=== PATIENT | female | born 1965 | race Caucasian/White ===

== ENCOUNTER 2021-04-04 05:58 | Day surgery (SDC) | payer BC, SELFPAY ==
[2021-04-01 11:23] VITALS: BMI 21.2
--- NOTE | 2021-04-02 10:07 | HO.ANESPROP2 ---
Documented by User: Priya Bañuelos 04/02/21 10:07 HPI - Anesthesia Eval Consult details Narrative: 55yo F for Hammertoe Repair PCP cleared Insulin pump in situ PMFSH Past Medical History Medical History Anemia COVID-19 vaccine administered Elevated cholesterol HTN (hypertension) Hx of diabetic neuropathy Thyroid disease Type 1 diabetes mellitus Surgical History Surgical History H/O colonoscopy History of carpal tunnel release History of incision and drainage Hx of wisdom tooth extraction Social History Social History Do you presently have visiting nurse or other home services: No Smoking Status: Never smoker Use of substances other than those prescribed or required for medical reasons: No Have you been hit, kicked, punched, or otherwise hurt by someone within the past year? If so, by whom?: No Are you DNR?: No Advance Directives Information Provided: No Recently lost weight without trying: No Eating poorly because of decreased appetite: No Nutrition Risks: No Nutritional Risk Patient : No Poor oral hygiene: No Meds Allergies Allergy/AdvReac Type Severity Reaction Status Date / Time lidocaine Allergy Intermediate tachycardia Verified 04/01/21 11:23 X1 w/dental / facial swelling X1 w/sutures Home Medications Medication Instructions Recorded Confirmed Last Taken Type aspirin [Aspirin Low Dose] 81 mg PO DAILY 04/01/21 04/01/21 Unknown History atorvastatin 1 tab PO DAILY 04/01/21 04/01/21 Unknown History cholecalciferol (vitamin D3) 25 mcg PO DAILY 04/01/21 04/01/21 Unknown History [Vitamin D3] gabapentin 1 cap PO DAILY 04/01/21 04/01/21 Unknown History insulin lispro [Humalog U-100 SUBCUT 04/01/21 04/01/21 Unknown History Insulin] levothyroxine 1 tab PO DAILY 04/01/21 04/01/21 Unknown History losartan 1 tab PO DAILY 04/01/21 04/01/21 Unknown History Exam Exam Date and Time: April 02, 2021 1007 Height,Weight and Vital Signs: Height 5 ft 8 in Weight 63.503 kg Assessment and Plan Assessment Anesthesia Assessment: Chart Reviewed Documented by User: Uma Womack 04/04/21 07:28 [facility] Past Medical History Medical History Anemia COVID-19 vaccine administered Elevated cholesterol HTN (hypertension) Hx of diabetic neuropathy Thyroid disease Type 1 diabetes mellitus Surgical History Surgical History H/O colonoscopy History of carpal tunnel release History of incision and drainage Hx of wisdom tooth extraction Social History Social History Do you presently have visiting nurse or other home services: No Smoking Status: Never smoker Use of substances other than those prescribed or required for medical reasons: No Have you been hit, kicked, punched, or otherwise hurt by someone within the past year? If so, by whom?: No Are you DNR?: No Advance Directives Information Provided: No Recently lost weight without trying: No Eating poorly because of decreased appetite: No Nutrition Risks: No Nutritional Risk Patient : No Poor oral hygiene: No Meds Allergies Allergy/AdvReac Type Severity Reaction Status Date / Time lidocaine Allergy Intermediate tachycardia Verified 04/01/21 11:23 X1 w/dental / facial swelling X1 w/sutures Home Medications Medication Instructions Recorded Confirmed Last Taken Type aspirin [Aspirin Low Dose] 81 mg PO DAILY 04/01/21 04/01/21 Unknown History atorvastatin 1 tab PO DAILY 04/01/21 04/01/21 Unknown History cholecalciferol (vitamin D3) 25 mcg PO DAILY 04/01/21 04/01/21 Unknown History [Vitamin D3] gabapentin 1 cap PO DAILY 04/01/21 04/01/21 Unknown History insulin lispro [Humalog U-100 SUBCUT 04/01/21 04/01/21 Unknown History Insulin] levothyroxine 1 tab PO DAILY 04/01/21 04/01/21 Unknown History losartan 1 tab PO DAILY 04/01/21 04/01/21 Unknown History Exam Airway Mallampati Class: II TM Dist: >3cm Neck ROM: Full Heart: RRR Lungs: CTA Assessment and Plan Assessment Anesthesia Assessment: Anesthesia Plan Discussed and Chart Reviewed Final Anesthetic Review NPO: Yes ASA Class: III Final Preanesthetic Review: Meds/Allgs Chart Reviewed, Consent Obtained/Reviewed and Anes Risks/Benef Reviewed Patient Risk: Intermediate Procedure Risk: Low Anesthetic Plan Anesthetic Plan: MAC: Disposition: Standard PACU
--- NOTE | 2021-04-03 15:22 | HP_ITS ---
DATE OF SERVICE: 04/04/2021 DATE OF PROPOSED SURGERY: April 04, 2021. PREOPERATIVE DIAGNOSIS: 1. Tailor bunion of the right 5th metatarsal. 2. Hammertoe, right 2nd. 3. Hammertoe, right 3rd. 4. Hammertoe, right 4th. 5. Hammertoe, right 5th. 6. 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 PLANNED PROCEDURES: 1. Partial metatarsal head resection, right 5th metatarsal. 2. Hammertoe repair, right 2nd. 3. Hammertoe repair, right 3rd. 4. Hammertoe repair, right 4th. 5. Hammertoe repair, right 5th. 6. Extensor tenotomy and capsulotomy of the right 2nd metatarsophalangeal joint. PLANNED ANESTHESIA: MAC anesthesia. CHIEF COMPLAINT AND HISTORY OF PRESENT ILLNESS: Agata Interiano is a 55-year-old female, who relates history of multiple painful foot deformities of the right foot present over the past few years' duration. She relates her condition has progressively worsened particularly within the past several months. Her pain is aggravated by shoe gear and conservative treatment consisting of altered shoe gear, use of diabetic extra-depth shoe gear has proven ineffective. The patient is now requesting surgical treatment. PAST MEDICAL HISTORY: Remarkable for insulin-dependent diabetes, hypothyroidism, high cholesterol, thyroid disease. CURRENT MEDICATIONS: Atorvastatin, baby aspirin, insulin pump, levothyroxine, losartan. ALLERGIES: THE PATIENT HAS NEGATIVE REACTION TO THE LIDOCAINE. FAMILY HISTORY: Significant for arthritis, foot problems. SOCIAL HISTORY: The patient denies smoking, denies use of any recreational drugs, and also denies use of alcohol. The patient does drink 2-3 cups of coffee per day. PHYSICAL EXAMINATION: VASCULAR EXAM: The patient displays +2/4 pulses. DP and PT arteries with normal cap refill time noted bilateral feet. NEUROLOGIC EXAM: Reveals decreased sensation bilateral feet. The patient does have pain on palpation in right 5th metatarsal phalangeal joint. DERMATOLOGIC EXAM: Reveals keratosis, bilateral feet. Skin is intact with no sign of infection or skin ulceration. ORTHOPEDIC EXAM: Reveals a tailor bunion deformity, right 5th metatarsal with pain on palpation and hammertoe deformity noted 2nd through 5th toe bilateral feet. Right foot more advanced than the left. The patient also has dorsal subluxation of the right 2nd metatarsophalangeal joint. The patient was seen most recently in my office on March 19, 2021. Preoperative informed consent was obtained from the patient that day for planned right foot surgery. Preoperative medical clearance has been provided by the patient's primary care physician, Dr. Oswald Ho. His office is at [address] [place] [address]. LISA Lopez/AMALIA / [phone]
[2021-04-04 06:05] VITALS: BP 167/72; PULSE 90; RESP 18; TEMP 36.6; O2SAT 98
[2021-04-04 06:23] LABS: Glucose, Whole Blood 232 mg/dL (60-115)
[2021-04-04] MEDS: Lactated Ringers 1,000 ML 100 ML IVCONT (06:43)
--- NOTE | 2021-04-04 06:45 | PC.NURSE ---
pt only has one iv left hand one stick
--- NOTE | 2021-04-04 08:47 | MHC.SHP ---
Pre-Procedural Eval Section B Chief Complaint: hammer toe,tailor bunion Allergies: Allergies Allergy/AdvReac Type Severity Reaction Status Date / Time lidocaine Allergy Intermediate tachycardia Verified 04/01/21 11:23 X1 w/dental / facial swelling X1 w/sutures Plan I have reviewed the history and physical and performed a pertinent physical examination on my patient. No changes have occurred unless specified.
--- NOTE | 2021-04-04 08:48 | PM.PROC ---
Brief Operative Note Date of procedure: 04/04/21 Pre-op diagnosis: Hammertoe right 2,3,4 and 5th toes; tailor bunion right; 2nd mtpj subluxati Post-op diagnosis: same Procedure: Hammertoe repair right 2,3,4 and 5th toes; partial metatarsal head resection right 5th; extensor tenotomy and capsulotomy right 2nd mtpj Anesthesia: MAC Surgeon: Crow Randhawa [employer] Specialist: Claudia Manley Estimated blood loss (mL): 1.0 Condition: stable Disposition: PACU
[2021-04-04 08:50] VITALS: BP 105/48; PULSE 78; RESP 16; TEMP 37.2; O2SAT 99
[2021-04-04 09:05] VITALS: BP 110/56; PULSE 77; RESP 16; O2SAT 98
[2021-04-04 09:20] VITALS: BP 120/67; PULSE 76; RESP 16; O2SAT 100
--- NOTE | 2021-04-11 10:40 | OP_ITS ---
SURGEON: Crow Randhawa DPM PREOPERATIVE DIAGNOSIS: POSTOPERATIVE DIAGNOSIS: PROCEDURE PERFORMED: ESTIMATED BLOOD LOSS: COMPLICATIONS: ANESTHESIA: Consisted of local administration of a total of 18 mL of an equal mix of 2% lidocaine plain and Marcaine 0.5% plain. Intravenous sedation was provided by the anesthesia department. ANESTHESIOLOGIST: Dr. Uma Womack MD.Dr. Uma Womack MD. ASSISTANTS: Dr. Manley. SPECIMENS: PREOPERATIVE DIAGNOSES: 1. Tailor bunion, right 5th metatarsal. 2. Hammertoe, right 2nd. 3. Hammertoe, right 3rd. 4. Hammertoe, right 4th. 5. Hammertoe, right 5th. 6. Contracture and subluxation, right 2nd metatarsophalangeal joint. POSTOPERATIVE DIAGNOSES: 1. Tailor bunion, right 5th metatarsal. 2. Hammertoe, right 2nd. 3. Hammertoe, right 3rd. 4. Hammertoe, right 4th. 5. Hammertoe, right 5th. 6. Contracture and subluxation, right 2nd metatarsophalangeal joint. PROCEDURES PERFORMED: 1. Partial metatarsal head resection, right 5th metatarsal. 2. Hammertoe repair, right second toe involving both interphalangeal joints. 3. Hammertoe repair, right 3rd. 4. Hammertoe repair, right 4th. 5. Hammertoe repair, right 5th. 6. Extensor tenotomy and capsulotomy of the right 2nd metatarsophalangeal joint. INTRODUCTION: The patient was brought to the operating room, placed on the operating table in supine position. After having been suitably anesthetized with local infiltrative anesthesia, the right lower extremity was then prepped and draped in the usual sterile manner. Please note that prior to the start of the procedures, the right foot was exsanguinated utilizing Esmarch bandage and right ankle tourniquet was inflated to 250 mmHg pressure for the duration of the procedures. PARTIAL METATARSAL HEAD RESECTION, RIGHT 5TH METATARSAL. Attention was directed to the dorsum of the right 5th metatarsal, where an incision approximately 3.5 cm length was effected from the distal shaft of the 5th metatarsal up to and just beyond the 5th metatarsophalangeal joint. Incision was deepened in same plane and hemostasis was acquired as necessary. Skin margins were underscored and retracted. There was found to be hypertrophic bone along the lateral aspect of the right 5th metatarsal head and upon exposure with the capsule and periosteum incision and dissection, the lateral aspect of the 5th metatarsal head was resected utilizing a power sagittal saw. The wound was irrigated. The capsule was closed with 3-0 Dexon. One half of 2 cm x 3 cm AmnioFix was placed inside the capsule during closure. The skin was then closed with 4-0 nylon. HAMMERTOE REPAIR, RIGHT SECOND TOE. Attention was directed to the dorsum of the right second toe, where incision from the base of proximal phalanx up to and just beyond the distal interphalangeal joint was effected. Both the interphalangeal joints were exposed via blunt and sharp dissection. The head of the proximal phalanx, base of middle phalanx, and head of the middle phalanx was resected utilizing sagittal saw. The wound was irrigated. The phalanges were then fixated utilizing a single 0.054-inch K-wire driven from distal to proximal. The tendons were then caught to maintain utilizing 3-0 Dexon. Skin margins closed with 4-0 nylon. HAMMERTOE REPAIR OF THE THIRD AND FOURTH TOES. Attention was directed to the dorsum of the right third and fourth toes, where 2 converging semi-elliptical incisions were placed at the level of the distal interphalangeal joint of each respective toe. The ellipse of skin was excised from the wound in toto. The extensor tendon was then incised and underscored and the hypertrophic head of the middle phalanx was delivered from the wound and then resected utilizing a sagittal saw. The wound was irrigated. The extensor tendon was caught to maintain and the skin margins were closed with 4-0 nylon. HAMMERTOE REPAIR OF RIGHT FIFTH TOE. Attention was now directed to the dorsum of the right fifth toe proximal interphalangeal joint, where an incision approximately 2 cm in length was effected and centered over the PIP joint. Incision was deepened in same plane. Hemostasis was acquired as necessary and then the skin margins were underscored and retracted. A transverse incision through the extensor tendon complex was effected and the hypertrophic head of the proximal phalanx was delivered and then resected utilizing sagittal saw. The wound was irrigated and extensor tendon was caught to maintain with 3-0 Vicryl. Skin margin was closed with 4-0 nylon. EXTENSOR TENOTOMY AND CAPSULOTOMY OF THE RIGHT 2ND METATARSOPHALANGEAL JOINT. Attention was now directed to the dorsum of the right 2nd metatarsophalangeal joint, where incision was effected from the distal shaft up to and just beyond the 2nd metatarsophalangeal joint. Incision was deepened in same plane. Hemostasis was acquired as necessary. Skin margins were underscored and retracted. The transverse incision was effected through the extensor longus brevis tendons as well as the dorsal, medial, and lateral capsule of the right 2nd metatarsophalangeal joint. A medium-sized McGlamry elevator was then utilized to reduce the dorsal subluxation of the proximal phalanx upon the metatarsal head and also free adhesions on the plantar plate of the right 2nd metatarsophalangeal joint. The K-wire was then utilized from the right second toe and driven from distal to proximal, maintaining the second metatarsophalangeal joint in rectus position. Excess K-wire was bent, cut, and capped. The second half of the AmnioFix was then placed inside the capsule and subcutaneous tissue. The capsule was closed with 3-0 Vicryl. Skin margins were closed with 4-0 nylon. CONCLUSION: At the inclusion of these procedures, the operative sites were dressed with Xeroform, 1-inch Conform, 2-inch Conform, , and 4-inch Conform. Also, 6 mL of Marcaine 0.5% plain was utilized prior to the bandage application. The right ankle tourniquet was deflated and normal blood flow was reestablished to the right lower extremity. The patient tolerated the surgery and anesthesia well and left the operating room via cart to the recovery room with vital signs stable. FINAL DISPOSITION: The patient is discharged home with instructions for self-care and include the following, 1. To keep the dressings dry, clean, and intact. 2. To keep the right leg elevated with ice above the ankle. 3. Take all medications as prescribed. 4. To limit activity to minimum. 5. To always use surgical shoe and crutches when ambulating, partial weightbearing, or nonweightbearing of the right lower extremity. 6. The patient has prescriptions for ibuprofen 800 mg 1 p.o. t.i.d. p.c., total number 90. Second prescription is gabapentin 300 mg total number 10, sig 1 p.o. daily at bedtime. Third prescription is oxycodone 5 mg total number 10, sig 1 p.o. q.6h p.r.n. pain; and last prescription is for Keflex 500 mg total number 20, sig 1 p.o. b.i.d. LISA Lopez/AMALIA / [phone]
== END 2021-04-04 10:06 | disposition home or self-care (01) ==
PROVIDERS: PCP Internal Medicine Endocrinology, Diabetes & Metabolism; Visit Provider Podiatrist
PROC: (CPT 28285; principal; 2021-04-04 07:30)
DX: M21.621 Bunionette of right foot (principal); M20.41 Other hammer toe(s) (acquired), right foot; M24.574 Contracture, right foot; D64.9 Anemia, unspecified; I10 Essential (primary) hypertension; E10.40 Type 1 diabetes mellitus with diabetic neuropathy, unspecified; Z79.4 Long term (current) use of insulin; Z96.41 Presence of insulin pump (external) (internal)
CPT/HCPCS: 28285 ×4; 28270; 82947; 88304; 88311; J0690; J1100; J2250; J2405; J3010; J3590